=== PATIENT | male | born 1995 | race Caucasian/White ===

== ENCOUNTER 2016-12-23 22:43 | Inpatient (IN) | payer BC ==
[~2016-12-23] VITALS: Ht 175.3 cm; Wt 51.3 kg
[2016-12-23] MEDS ORDERED: ONDANSETRON 2MG/ML, 2ML ONE (23:15)
[2016-12-23] MEDS ORDERED: MORPHINE SULFATE 4 MG/ML, 1ML ONE (23:15)
[2016-12-23] MEDS ORDERED: MORPHINE SULFATE 4 MG/ML, 1ML IVPush PRN (23:30)
[2016-12-23] MEDS ORDERED: SODIUM CHLORIDE FLUSH 10ML SYR IVF ONE (23:30)
[2016-12-23] MEDS ORDERED: SODIUM CHLORIDE 0.9% 1,000ML IVBOLUS ONE (23:30)
[2016-12-23] MEDS ORDERED: ONDANSETRON 2MG/ML, 2ML IVPush ONE (23:30)
[2016-12-24] MEDS ORDERED: OMNIPAQUE 350 MG/ML, 100ML BOTTLE ONE (00:02)
[2016-12-24 00:12] LABS: BLOOD UREA NITROGEN 30 mg/dL (7-18)
[2016-12-24 00:16] LABS: ASPARTATE AMINO TRANSFERASE 84 U/L (15-37)
[2016-12-24] MEDS ORDERED: SODIUM CHLORIDE 0.9% 1,000 ML IV ONE (00:22)
[2016-12-24] MEDS ORDERED: SODIUM CHLORIDE FLUSH 10ML SYR IVF ONE (00:30)
[2016-12-24] MEDS ORDERED: SODIUM CHLORIDE 0.9% 1,000ML IVBOLUS ONE ×2 (00:30→01:30)
[2016-12-24] MEDS ORDERED: POLYETHYLENE GLYCOL 17 GM PACKET PO PRN (01:00)
[2016-12-24] MEDS: HEPARIN 5,000 UNITS/ML, 1ML SQ SCH ×3 (01:00→17:00)
[2016-12-24] MEDS ORDERED: METHOCARBAMOL 750 MG TABLET PO PRN (01:00)
[2016-12-24] MEDS ORDERED: DOCUSATE 100 MG CAPSULE PO PRN (01:00)
[2016-12-24] MEDS ORDERED: ACETAMINOPHEN 325 MG TABLET PO PRN (01:00)
[2016-12-24] MEDS ORDERED: POTASSIUM CHLORIDE 20 MEQ TAB.ER.PRT PO ONE (01:00)
[2016-12-24] MEDS ORDERED: BISACODYL 10 MG SUPP PR PRN (01:00)
[2016-12-24] MEDS ORDERED: morphine SULFATE 10 MG/ML, 1ML IVPush PRN (01:00)
[2016-12-24] MEDS: HYDROcodone/APAP 5/325 TABLET PO PRN ×2 (02:04→16:21)
[2016-12-24 02:20] LABS: DAU SCREEN DISCLAIMER
[2016-12-24 02:30] LABS: PATH.CAST-FLAG NOT PRESENT; SPERM-FLAG NOT PRESENT; SRC-FLAG NOT PRESENT; XTAL-FLAG NOT PRESENT; YLC-FLAG NOT PRESENT
[2016-12-24 02:33] LABS: POTASSIUM,URINE RANDOM 7 mmol/L
[2016-12-24] MEDS: SODIUM CHLORIDE 0.9% 1,000 ML IV SCH ×4 (03:07→19:34)
[2016-12-24 06:21] VITALS: BP 128/80
[2016-12-24 07:24] LABS: BLOOD UREA NITROGEN 27 mg/dL (7-18)
[2016-12-24 07:48] LABS: HIV 1&2 ANTIBODY SCREEN Nonreactive (Nonreactive); HIV-1 p24 ANTIGEN Nonreactive (Nonreactive)
[2016-12-24] MEDS: ONDANSETRON 2MG/ML, 2ML IVPush PRN ×3 (08:30→20:54)
[2016-12-24 08:34] VITALS: BP 121/74
[2016-12-24 13:12] VITALS: BP 136/93
[2016-12-24 19:22] VITALS: BP 122/82
[2016-12-25] MEDS: HEPARIN 5,000 UNITS/ML, 1ML SQ SCH ×3 (01:00→17:00)
[2016-12-25 01:27] VITALS: BP 121/73
[2016-12-25] MEDS: SODIUM CHLORIDE 0.9% 1,000 ML IV SCH ×4 (01:28→23:56)
[2016-12-25 06:11] LABS: BLOOD UREA NITROGEN 19 mg/dL (7-18)
[2016-12-25 07:51] VITALS: BP 136/84
[2016-12-25 09:52] LABS: HEPATITIS C VIRUS ANTIBODY Nonreactive (Nonreactive)
[2016-12-25 12:55] VITALS: BP 158/83
[2016-12-25] MEDS: ONDANSETRON 2MG/ML, 2ML IVPush PRN (18:09)
[2016-12-25 19:11] VITALS: BP 145/88
[2016-12-26] MEDS: HEPARIN 5,000 UNITS/ML, 1ML SQ SCH ×2 (01:00→08:49)
[2016-12-26 03:20] VITALS: BP 138/79
[2016-12-26] MEDS: SODIUM CHLORIDE 0.9% 1,000 ML IV SCH ×2 (05:06→10:56)
[2016-12-26 06:10] LABS: BLOOD UREA NITROGEN 12 mg/dL (7-18)
[2016-12-26 07:54] VITALS: BP 134/85
== END 2016-12-26 11:48 | disposition home or self-care (01) | DRG 683 ==
LOC: ED 23:59 → EDIP 12-24 00:27 → SUATTDRO 12-24 00:40 → 3NE 12-24 01:31 → DCLOUNGE 12-26 11:35
DX: N17.9 Acute kidney failure, unspecified (principal); E87.1 Hypo-osmolality and hyponatremia; E87.6 Hypokalemia; F19.10 Other psychoactive substance abuse, uncomplicated; E86.0 Dehydration; T79.6XXA Traumatic ischemia of muscle, initial encounter; F11.90 Opioid use, unspecified, uncomplicated
CPT/HCPCS: 36415; 72072; 72110; 74177; 80048; 80053; 80074; 80307; 81001; 82436; 82550; 82570; 83735; 84100; 84133; 84300; 84550; 85025; 86703; 87205; 87899; 96361; 96374; 96375; J2405; Q9967; G0435; J7030

== ENCOUNTER 2017-05-27 10:59 | Emergency (ER) | payer BC ==
[~2017-05-27] VITALS: Ht 177.8 cm; Wt 54.6 kg
[2017-05-27] MEDS ORDERED: LORazepam 1MG TABLET PO ONE (13:30)
[2017-05-27 13:44] LABS: HEMATOCRIT 45.1 % (39.2-51.8); HEMOGLOBIN 14.9 g/dL (13.7-18.0); WHITE BLOOD COUNT 5.5 x10^3/uL (3.4-10)
[2017-05-27] MEDS ORDERED: LORazepam 1MG TABLET ONE (13:45)
[2017-05-27 13:57] LABS: BLOOD UREA NITROGEN 13 mg/dL (7-18)
[2017-05-27 14:26] LABS: PATH.CAST-FLAG NOT PRESENT; SPERM-FLAG NOT PRESENT; SRC-FLAG NOT PRESENT; XTAL-FLAG NOT PRESENT; YLC-FLAG NOT PRESENT
[2017-05-27 15:08] VITALS: BP 126/64
== END 2017-05-27 15:15 | disposition home or self-care (01) ==
LOC: ED 13:15
DX: F41.1 Generalized anxiety disorder (principal)
CPT/HCPCS: 36415; 80048; 81001; 82040; 85025; 87077; 87086; 93005; 99285; Q0177; 87186